=== PATIENT | male | born 1970 | race Caucasian/White ===

== ENCOUNTER 2017-02-28 23:30 | Emergency (ER) | payer BC ==
[~2017-02-28] VITALS: Ht 170.2 cm; Wt 75.0 kg
[2017-03-01] MEDS ORDERED: KETOROLAC 30 MG/1 ML IM ONE
[2017-03-01 00:10] LABS: HEMATOCRIT 44.7 % (39.2-51.8); HEMOGLOBIN 14.8 g/dL (13.7-18.0); WHITE BLOOD COUNT 9.8 x10^3/uL (3.4-10)
[2017-03-01] MEDS ORDERED: KETOROLAC 30 MG/1 ML ONE (00:11)
[2017-03-01 00:22] LABS: ASPARTATE AMINO TRANSFERASE 25 U/L (15-37); BLOOD UREA NITROGEN 13 mg/dL (7-18)
[2017-03-01 00:27] LABS: IS PT STATUS REG ER OR PRE ER? YES
[2017-03-01 01:05] VITALS: BP 100/64
== END 2017-03-01 01:07 | disposition home or self-care (01) ==
LOC: ED 03-01 00:52
DX: R07.89 Other chest pain (principal); G89.29 Other chronic pain; M54.9 Dorsalgia, unspecified
CPT/HCPCS: 36415; 71020; 80053; 84484; 85025; 93005; 96372; 99285; J1885

== ENCOUNTER 2017-04-25 18:33 | Emergency (ER) | payer BC ==
[~2017-04-25] VITALS: Ht 172.7 cm; Wt 76.3 kg
[2017-04-25 19:36] LABS: HEMATOCRIT 43.9 % (39.2-51.8); HEMOGLOBIN 14.9 g/dL (13.7-18.0); WHITE BLOOD COUNT 8.9 x10^3/uL (3.4-10)
[2017-04-25 19:48] LABS: ASPARTATE AMINO TRANSFERASE 24 U/L (15-37); BLOOD UREA NITROGEN 17 mg/dL (7-18)
[2017-04-25 20:36] VITALS: BP 104/53
== END 2017-04-25 20:38 | disposition home or self-care (01) ==
LOC: ED 19:26
DX: S09.90XA Unspecified injury of head, initial encounter (principal); M54.2 Cervicalgia; W01.198A Fall on same level from slipping, tripping and stumbling with subsequent striking against other object, initial encounter; Y93.89 Activity, other specified; Y92.098 Other place in other non-institutional residence as the place of occurrence of the external cause; Y99.8 Other external cause status; Z88.0 Allergy status to penicillin
CPT/HCPCS: 36415; 70450; 72125; 80053; 80307; 85025; 99285; G0479

== ENCOUNTER 2021-02-20 16:31 | Emergency (ER) | payer BC, MEDICAID ==
[~2021-02-20] VITALS: Ht 172.7 cm; Wt 75.9 kg
[~2021-02-20 16:31] MED LIST: IBUP-1223 PO
[2021-02-20 17:45] VITALS: BP 106/75
== END 2021-02-20 17:45 | disposition home or self-care (01) ==
LOC: ED 17:40
DX: U07.1 COVID-19 (principal); R50.9 Fever, unspecified; G89.29 Other chronic pain
CPT/HCPCS: 71045; 99284; U0003; U0005